=== PATIENT | female | born 1940 | race Caucasian/White ===

== ENCOUNTER 2017-04-21 12:45 | Emergency (ER) | payer OTHER ==
[~2017-04-21] VITALS: Ht 172.7 cm; Wt 83.4 kg
[~2017-04-21 12:45] MED LIST: ASPIRIN81 M1 PO; BENTYL10 MG PO; DICYCLOMINE HCL10 MG PO; LEVBID0.375 MG PO; METOPROLOL SUCC25 MG PO; NEURONTIN300 MG PO; NEURONTIN400 MG PO; PANTOPRAZOLE SO40 MG PO; PERCOCET 5/31 TABLET PO; PRAVACHOL20 MG; PRAVASTATIN SOD20 MG PO; PRILOSEC40 MG PO; PROMETHAZINE HC25 M1 PO; TOPROL XL25 MG PO; TOPROL XL6.25 MG PO; Ultram PO
[2017-04-21 13:55] LABS: CHLORIDE 104 mEq/L (99-109); POTASSIUM 4.1 mEq/L (3.7-5.4); SODIUM 140 mEq/L (136-147)
[2017-04-21 13:57] LABS: GLUCOSE 90 mg/dL (70-99)
[2017-04-21 13:59] LABS: HEMATOCRIT 43.9 % (36.0-46.0); HEMOGLOBIN 14.7 G/DL (11.9-15.5); MCH 31.1 PG (29.0-34.0); MCHC 33.5 G/DL (30.0-36.0); MCV 92.8 FL (83-99); PLATELET COUNT 219 K/uL (156-360); RBC DIS.WIDTH-CV 12.6 % (11.8-14.6); RBC DIS.WIDTH-SD 43.1 % (39-53); RED BLOOD COUNT 4.73 M/uL (3.80-5.20); WHITE BLOOD COUNT 9.3 K/uL (4.1-10.2)
[2017-04-21 14:01] LABS: GFR ESTIMATE (CALCULATED) 58 mL/min/
[2017-04-21 14:02] LABS: UREA NITROGEN (BUN) 10 mg/dL (9-23)
[2017-04-21] MEDS ORDERED: METOPROLOL TART25 MG PO (15:59)
[2017-04-21 16:08] LABS: APPEARANCE CLEAR ((CLEAR)); BILIRUBIN NEGATIVE; BLOOD NEGATIVE; COLOR STRAW ((YELLOW)); GLUCOSE (STRIP) NEGATIVE; KETONES NEGATIVE; LEUKOCYTES NEGATIVE; NITRITE NEGATIVE; PROTEIN (STRIP) NEGATIVE; SPECIFIC GRAVITY 1.004 (1.000-1.030); UCUL ADDED? NO; UROBILINOGEN 0.2 MG/DL (0.2-1.0)
[2017-04-21] MEDS ORDERED: ZOFRAN ODT4 MG PO (18:35)
[2017-04-21 19:22] VITALS: BP 184/90
== END 2017-04-21 19:38 | disposition home or self-care (01) ==
LOC: EME 12:45
DX: K58.0 Irritable bowel syndrome with diarrhea (principal); I10 Essential (primary) hypertension; E78.5 Hyperlipidemia, unspecified; K21.9 Gastro-esophageal reflux disease without esophagitis; Z90.49 Acquired absence of other specified parts of digestive tract; Z87.891 Personal history of nicotine dependence; Z86.73 Personal history of transient ischemic attack (TIA), and cerebral infarction without residual deficits; Z79.82 Long term (current) use of aspirin; Z88.0 Allergy status to penicillin; Z88.5 Allergy status to narcotic agent; Z88.8 Allergy status to other drugs, medicaments and biological substances
CPT/HCPCS: 74177; 80048; 81003; 85027; 87493; 99281; 99285; J7040